=== PATIENT | female | born 1945 | race Two or more races ===

== ENCOUNTER 2018-01-29 11:53 | Inpatient (IN) | payer OTHER ==
[2018-01-29 14:52] VITALS: BP 137/96
[2018-01-29] MEDS ORDERED: ATENOLOL50 MG PO (16:47)
[2018-01-29] MEDS ORDERED: NEXIUM20 MG PO (16:49)
[2018-01-29] MEDS ORDERED: DITROPAN XL10 MG PO (16:50)
[2018-01-29] MEDS ORDERED: SEROQUEL100 MG PO (16:50)
[2018-01-29] MEDS ORDERED: CARBATROL-ER300 MG PO (16:51)
[2018-01-29] MEDS ORDERED: ACID REDUCER20 MG PO (16:51)
[2018-01-29] MEDS ORDERED: CARAFATE1 GM PO (16:52)
[2018-01-29] MEDS ORDERED: ZOFRAN4 MG SL (16:53)
[2018-01-29] MEDS ORDERED: ATIVAN0.5 MG PO (16:54)
[2018-01-30 07:40] VITALS: BP 140/62
[2018-01-30 16:25] VITALS: BP 151/66
[2018-01-31 07:57] VITALS: BP 124/60
[2018-01-31 16:07] VITALS: BP 164/74
[2018-01-31 19:23] VITALS: BP 148/72
[2018-02-01 07:48] VITALS: BP 122/59
[2018-02-01 16:16] VITALS: BP 153/78
[2018-02-02 08:28] VITALS: BP 134/60
[2018-02-02 15:52] VITALS: BP 136/70
[2018-02-03 08:13] VITALS: BP 111/72
[2018-02-03 16:48] VITALS: BP 167/74
[2018-02-04 07:43] VITALS: BP 143/66
[2018-02-04 16:41] VITALS: BP 150/69
[2018-02-05 07:46] VITALS: BP 147/64
[2018-02-05 16:02] VITALS: BP 164/72
[2018-02-06 07:54] VITALS: BP 148/72
[2018-02-06 16:38] VITALS: BP 141/73
[2018-02-07 08:26] VITALS: BP 141/64
[2018-02-07 16:30] VITALS: BP 169/71
[2018-02-08 07:45] VITALS: BP 117/55
[2018-02-08 16:24] VITALS: BP 158/72
[2018-02-09 07:43] VITALS: BP 123/60
[2018-02-09 15:10] VITALS: BP 153/76
[2018-02-09 18:12] VITALS: BP 138/66
[2018-02-10 07:55] VITALS: BP 119/56
[2018-02-10 15:20] VITALS: BP 137/59
[2018-02-11 09:21] VITALS: BP 134/60
[2018-02-11 15:57] VITALS: BP 139/70
[2018-02-12 08:02] VITALS: BP 114/53
[2018-02-12 16:19] VITALS: BP 122/55
[2018-02-13 07:47] VITALS: BP 118/54
[2018-02-13 15:34] VITALS: BP 120/60
[2018-02-14 07:28] VITALS: BP 105/59
[2018-02-14 14:46] VITALS: BP 103/48
[2018-02-15 08:11] VITALS: BP 121/53
[2018-02-15 16:54] VITALS: BP 133/61
[2018-02-16 08:24] VITALS: BP 127/58
[2018-02-16 16:03] VITALS: BP 135/64
[2018-02-17 08:25] VITALS: BP 142/65
[2018-02-17 15:49] VITALS: BP 168/68
[2018-02-18 07:33] VITALS: BP 105/58
[2018-02-18 10:17] VITALS: BP 128/60
[2018-02-19 07:56] VITALS: BP 125/62
[2018-02-19 16:05] VITALS: BP 130/60
[2018-02-20 08:01] VITALS: BP 131/58
[2018-02-20] MEDS ORDERED: ARIPIPRAZOLE5 MG PO (15:08)
[2018-02-20] MEDS ORDERED: BENTYL10 MG PO (15:08)
[2018-02-20] MEDS ORDERED: LORAZEPAM2 MG PO (15:08)
[2018-02-20] MEDS ORDERED: VENLAFAXINE HC150 M1 PO (15:08)
[2018-02-20] MEDS ORDERED: LITHIUM CARBON300 M2 PO (15:08)
[2018-02-20] MEDS ORDERED: LORAZEPAM1 MG PO (15:08)
[2018-02-20 16:09] VITALS: BP 130/79
[2018-02-21 08:17] VITALS: BP 130/58
[2018-02-21] MEDS ORDERED: GUAIFENESI100 MG/5 M PO (12:30)
== END 2018-02-21 17:37 | DRG 885 ==
LOC: 1WEST 11:53 → ENRESERV 11:56 → 1WEST 14:31
DX: F31.4 Bipolar disorder, current episode depressed, severe, without psychotic features (principal); R45.851 Suicidal ideations; F60.3 Borderline personality disorder; F41.1 Generalized anxiety disorder; I10 Essential (primary) hypertension; K58.2 Mixed irritable bowel syndrome; M54.30 Sciatica, unspecified side
CPT/HCPCS: 80178; 87493; 93005; 97150 GO; 97166 GO; 97530 GO; Q0177